=== PATIENT | female | born 1985 | race Caucasian/White ===

== ENCOUNTER 2020-12-02 10:11 | Emergency (ER) | payer OTHER ==
[~2020-12-02 10:11] MED LIST: BENTYL 20MG TAB20 MG PO; ZOFRAN ODT 4 MG4 MG PO
== END 2020-12-02 11:28 | disposition home or self-care (01) ==
LOC: ER1 10:11
DX: U07.1 COVID-19 (principal); I10 Essential (primary) hypertension
CPT/HCPCS: 99283; U0003